=== PATIENT | male | born 1955 | race Caucasian/White ===

== ENCOUNTER 2016-06-18 08:37 | Day surgery (SDC) | payer BC ==
--- NOTE | 2016-06-17 17:28 | PCM.PREANE ---
<Andres Naylor - Last Filed: 06/17/16 17:28> Preanesthetic Assessment - ANESTHESIA/TRANSFUSION/FAMILY HX Anesthesia/Transfusion History: No Prior Transfusion(s), Prior Anesthesia Family History of Anesthesia Reaction: No - REVIEW OF SYSTEMS Constitutional: Reports: no symptoms PHOTOGRAPH INSPECTOR: Reports: no symptoms Respiratory: Reports: no symptoms Cardiovascular: Reports: no symptoms GI: Reports: no symptoms Other: Reports: none - PHYSICAL ASSESSMENT Vital Signs: Last Vital Signs Temp 97.8 F 06/18/16 09:29 Pulse 62 06/18/16 09:29 Resp 18 06/18/16 09:29 BP 119/79 06/18/16 09:29 Pulse Ox 97 06/18/16 09:29 Height: 5 ft 10 in Weight: 261 lb ASA Class: 3 - LAB Values: Laboratory Last Values POC Glucose 154 mg/dL (60-110) H 06/18/16 09:22 - ALLERGIES Allergies/Adverse Reactions: Allergies Allergy/AdvReac Type Severity Reaction Status Date / Time No Known Allergies Allergy Verified 08/21/13 10:02 - ANESTHESIA PLAN Anesthesia Type Planned: MAC - ACKNOWLEDGEMENTS Pt an appropriate candidate for the planned anesthesia: Yes Alternatives and risks of anesthesia discussed w pt/guardian: Yes Pt/Guardian understands and agree with anesthesia plan: Yes PreAnesthesia Questionnaire HEENT History: Reports: Other (see below) Other HEENT History: wears glasses Cardiovascular History: Reports: High cholesterol, Hypertension Respiratory History: Reports: None Gastrointestinal History: Reports: Colon polyp, GERD Genitourinary History: Reports: None Musculoskeletal History: Reports: Back pain, chronic Neurological History: Reports: None Psychiatric History: Reports: None Endocrine/Metabolic History: Reports: Diabetes, type II, Obesity/BMI 30+ Hematologic History: Reports: None Immunologic History: Reports: None Oncologic (Cancer) History: Reports: None Dermatologic History: Reports: None - Past Surgical History Head Surgeries/Procedures: Reports: None GI Surgical History: Reports: Colonoscopy, EGD, Hernia repair/other Other GI Surgeries/Procedures: hx of umbilical hernia approximately 10 yrs ago Musculoskeletal Surgical History: Reports: Other (see below) Other Musculoskeletal Surgeries/Procedures:: hx of hemangioma removed from knee - SUBSTANCE USE Smoking Status *Q: Never Smoker Second Hand Smoke Exposure: No Recreational Drug Use History: No - HOME MEDS Home Medications: Home Meds Losartan Potassium 50 mg PO BEDTIME 01/17/15 [History] SitaGLIPtin [Januvia] 100 mg PO DAILY 01/17/15 [History] atorvaSTATin Calcium [Atorvastatin Calcium] 20 mg PO BEDTIME 01/17/15 [History] glyBURIDE,Micronized [Glyburide Micronized] 6 mg PO BID 01/17/15 [History] metFORMIN [Glucophage] 1,000 mg PO BID 01/17/15 [History] Aspirin [[place] Aspirin] 81 mg PO DAILY 06/15/16 [History] Calcium Carbonate/Vitamin D3 [Calcium 600 + Vit D 400 Softgl] 1 tab PO DAILY [History] Cinnamon Bark [Cinnamon] 500 mg PO DAILY 06/15/16 [History] Cyanocobalamin (Vitamin B-12) [Vitamin B-12] 500 mcg PO DAILY 06/15/16 [History] Fish Oil/[place]-3 Fatty Acids [Fish Oil 1,000 MG] 1,000 mg PO DAILY 06/15/16 [ History] Garlic 500 mg PO DAILY 06/15/16 [History] Magnesium Oxide [Magnesium] 400 mg PO DAILY 06/15/16 [History] Potassium 99 mg PO DAILY 06/15/16 [History] - CURRENT (IN HOUSE) MEDS Current Meds: Current Medications Lactated Ringer's (Ringers, Lactated) 1,000 mls @ 125 mls/hr IV ASDIRECTED [facility] Last Admin: 06/18/16 09:31 Dose: 125 mls/hr Discontinued Medications Lidocaine (Xylocaine-Mpf 2%) Confirm Administered Dose 5 ml .ROUTE .STK-MED ONE Stop: 06/18/16 07:30 Propofol (Diprivan 20 Ml) Confirm Administered Dose 400 mg .ROUTE .STK-MED ONE Stop: 06/18/16 07:30 <Italo Cook - Last Filed: 06/18/16 09:52> Preanesthetic Assessment - ANESTHESIA/TRANSFUSION/FAMILY HX Intubation History: Unknown - REVIEW OF SYSTEMS Constitutional: Reports: no symptoms PHOTOGRAPH INSPECTOR: Reports: no symptoms Respiratory: Reports: no symptoms Cardiovascular: Reports: no symptoms, blood pressure problem (treated) GI: Reports: no symptoms Other: Reports: none, diabetes (on meds for Type II) - PHYSICAL ASSESSMENT ASA Class: 3 Mental Status: alert & oriented x3 Airway Class: Mallampati = 2 Dentition: Reports: normal dentition Thyro-Mental Finger Breadths: 3 Mouth Opening Finger Breadths: 3 (left side TMJ with crunch palpable) ROM/Head Extension: full Respiratory Status: lungs clear to auscultation bilaterally Cardiovascular Status: regular rate & rhythm, no murmur - BLOOD Blood Available: No Product(s) Available: None - ANESTHESIA PLAN Preop Beta Martita: No Anesthesia Type Planned: MAC - ACKNOWLEDGEMENTS Pt an appropriate candidate for the planned anesthesia: Yes Alternatives and risks of anesthesia discussed w pt/guardian: Yes Pt/Guardian understands and agree with anesthesia plan: Yes
[~2016-06-18 08:37] MED LIST: Lactated Ringers 1,000 ML IV SCH; Lidocaine 2% 5 ML SDV ONE; Propofol 200 MG/20 ML SDV ONE
--- NOTE | 2016-06-18 10:36 | PCM.OPNOTE ---
- General Post-Op/Procedure Note Date of Surgery/Procedure: 06/18/16 Operative Procedure(s): Esophagogastroduodenoscopy with biopsy Pre Op Diagnosis: Progressive solid food dysphagia. Heartburn. Post-Op Diagnosis: Chronic gastritis Anesthesia Technique: MAC (ASA III) Primary Surgeon: Mustapha Sharma Hat Band Attacher: Becky June Condition: Good Free Text/Narrative:: Dictation [id number]
[2016-06-18] MEDS ORDERED: Lactated Ringers 1,000 ML IV SCH (10:45)
--- NOTE | 2016-06-18 11:30 | OR ---
SURGEON: Mustapha Sharma M.D. DATE OF PROCEDURE: 06/18/2016 OPERATION PERFORMED: Esophagogastroduodenoscopy with biopsy. MACHINE LEAD BURNER: Dr. June. ANESTHESIA: MAC. ASA CLASSIFICATION: III. PREOPERATIVE DIAGNOSIS: Progressive solid food dysphagia with persistent heartburn. POSTOPERATIVE DIAGNOSES: Mild to moderate gastritis, no ulcerations, no esophageal lesions, no esophageal stricture. DESCRIPTION OF PROCEDURE: The patient was taken to the endoscopy room and positioned on the endoscopy table in the supine position. Time-out was called for appropriate identification of the patient and procedure. Bite-block was placed between the patient's teeth. The gastroscope was inserted into the mouth and advanced without difficulty through the esophagus and stomach into the duodenum, where examination was carried out in a retrograde fashion. Duodenum shows no acute inflammatory changes. The scope was withdrawn into the stomach, which does show mild to moderate gastritis. No acute ulcerations were identified. Antral biopsies were obtained to rule out Helicobacter pylori. The gastroscope was retroflexed to visualize the proximal stomach. Again, gastritis was noted, but no ulcerations or tumors. The gastroscope was straightened and slowly withdrawn aspirating the stomach. The GE junction was well defined and shows no acute inflammatory changes or ulcerations. There was no stricture noted anywhere along the entire length of the esophagus. The esophagus demonstrated good contractility. No vocal cord lesions were identified as the scope was withdrawn. The patient tolerated the procedure well and was taken to recovery room in stable condition. SHARON / HIWOT /[id number]
--- NOTE | 2016-06-18 11:43 | PCM.POSTAN ---
POST ANESTHESIA ASSESSMENT - MENTAL STATUS Mental Status: alert, oriented - RESPIRATORY Respiratory Status: respiratory rate WNL, airway patent, O2 saturation stable - CARDIOVASCULAR CV Status: pulse rate WNL, blood pressure stable - GASTROINTESTINAL GI Status: no symptoms - POST OP HYDRATION Hydration Status: adequate & stable
--- NOTE | 2016-06-18 11:44 | PCM48HPAN ---
Post Anesthesia Note - EVALUATION WITHIN 48HRS OF ANESTHETIC Vital Signs in Normal Range: Yes Patient Participated in Evaluation: Yes Respiratory Function Stable: Yes Airway Patent: Yes Cardiovascular Function Stable: Yes Hydration Status Stable: Yes Pain Control Satisfactory: Yes Nausea and Vomiting Control Satisfactory: Yes Mental Status Recovered: Yes
[2016-06-18 11:46] VITALS: BP 124/73
== END 2016-06-18 11:50 | disposition home or self-care (01) ==
LOC: MW.SDS 08:37
PROVIDERS: ATTEND Surgery
PROC: 0DB68ZX Excision of Stomach, Via Natural or Artificial Opening Endoscopic, Diagnostic (ICD-10-PCS; principal; 2016-06-18)
DX: K29.50 Unspecified chronic gastritis without bleeding (principal); I10 Essential (primary) hypertension; E11.9 Type 2 diabetes mellitus without complications; E78.00 Pure hypercholesterolemia, unspecified; Z86.010 Personal history of colon polyps; Z91.048 Other nonmedicinal substance allergy status; Z79.82 Long term (current) use of aspirin; Z79.84 Long term (current) use of oral hypoglycemic drugs; Z79.899 Other long term (current) drug therapy; Z98.890 Other specified postprocedural states; E66.9 Obesity, unspecified; Z68.36 Body mass index [BMI] 36.0-36.9, adult
CPT/HCPCS: 43239; 82962; 88305; 88312; J7120; 00740; J2704

== ENCOUNTER 2020-05-16 06:32 | Day surgery (SDC) | payer BC ==
[~2020-05-16 06:32] MED LIST changes: -Lidocaine 2% 5 ML SDV ONE; -Propofol 200 MG/20 ML SDV ONE
[2020-05-16] MEDS ORDERED: Propofol 200 MG/20 ML SDV ONE ×2 (06:45→07:53)
[2020-05-16] MEDS ORDERED: fentaNYL 100 MCG/2 ML SDV ONE (07:02)
--- NOTE | 2020-05-16 07:28 | PCM.PREANE ---
Preanesthetic Assessment - Anesthesia/Transfusion/Family Hx Anesthesia History: Prior Anesthesia Without Reaction Family History of Anesthesia Reaction: No Transfusion History: No Prior Transfusion(s) - Review of Systems General: No Symptoms Pulmonary: No Symptoms Cardiovascular: No Symptoms Gastrointestinal: No Symptoms Neurological: No Symptoms Other: Reports: None - Physical Assessment NPO Status Date: 05/15/20 Vital Signs: Last Vital Signs Temp 97.5 F 05/16/20 06:49 Pulse 70 05/16/20 06:49 Resp 16 05/16/20 06:49 BP 147/81 H 05/16/20 06:49 Pulse Ox 96 05/16/20 06:49 Height: 5 ft 10 in Weight: 108.862 kg ASA Class: 2 Mental Status: Alert & Oriented x3 Airway Class: Mallampati = 2 Dentition: Reports: Normal Dentition ROM/Head Extension: Full Lungs: Clear to Auscultation, Normal Respiratory Effort Cardiovascular: Regular Rate, Regular Rhythm - Lab Values: Laboratory Last Values POC Glucose 94 mg/dL (60-110) 05/16/20 06:48 - Allergies Allergies/Adverse Reactions: Allergies Allergy/AdvReac Type Severity Reaction Status Date / Time lisinopril Allergy Cough Verified 05/16/20 07:00 - Blood Blood Available: No - Anesthesia Plan Pre-Op Medication Ordered: None - Acknowledgements Anesthesia Type Planned: General Anesthesia (tiva) Pt an Appropriate Candidate for the Planned Anesthesia: Yes Alternatives and Risks of Anesthesia Discussed w Pt/Guardian: Yes Pt/Guardian Understands and Agrees with Anesthesia Plan: Yes PreAnesthesia Questionnaire HEENT History: Reports: Other (See Below) Other HEENT History: wears glasses Cardiovascular History: Reports: High Cholesterol, Hypertension Respiratory History: Reports: None Gastrointestinal History: Reports: Colon Polyp, GERD Genitourinary History: Reports: None Musculoskeletal History: Reports: Back Pain, Chronic, Fracture Other Musculoskeletal History: hx fx collarbone Neurological History: Reports: None Psychiatric History: Reports: None Endocrine/Metabolic History: Reports: Diabetes, Type II, Obesity/BMI 30+ Hematologic History: Reports: None Immunologic History: Reports: None Oncologic (Cancer) History: Reports: None Dermatologic History: Reports: Other (See Below) Other Dermatologic History: hx MRSA in hand approx 8 years ago - Past Surgical History Head Surgeries/Procedures: Reports: None HEENT Surgical History: Reports: Tonsillectomy Cardiovascular Surgical History: Reports: None Respiratory Surgical History: Reports: None GI Surgical History: Reports: Colonoscopy, EGD, Hernia, Abdominal, Hernia Repair /Other Other GI Surgeries/Procedures: hx of umbilical hernia Male Surgical History: Reports: None Endocrine Surgical History: Reports: None Neurological Surgical History: Reports: None Musculoskeletal Surgical History: Reports: Other (See Below) Other Musculoskeletal Surgeries/Procedures:: hx of hemangioma removed from knee Oncologic Surgical History: Reports: None Dermatological Surgical History: Reports: None - SUBSTANCE USE Tobacco Use Status *Q: Never Tobacco User - HOME MEDS Home Medications: Home Meds Losartan Potassium 50 mg PO BEDTIME 01/17/15 [History] atorvaSTATin Calcium [Atorvastatin Calcium] 10 mg PO BEDTIME 01/17/15 [History] metFORMIN [Glucophage] 1,000 mg PO BID 01/17/15 [History] Aspirin [[place] Aspirin EC] 81 mg PO DAILY 06/15/16 [History] Calcium Carbonate/Vitamin D3 [Calcium 600 + Vit D 400 Softgl] 1 tab PO DAILY 06/15/16 [History] Cinnamon Bark [Cinnamon] 500 mg PO DAILY 06/15/16 [History] Cyanocobalamin (Vitamin B-12) [Vitamin B-12] 500 mcg PO DAILY 06/15/16 [History] Fish Oil/[place]-3 Fatty Acids [Fish Oil 1,000 MG] 1,000 mg PO DAILY 06/15/16 [History] Garlic 500 mg PO DAILY 06/15/16 [History] Magnesium Oxide [Magnesium] 400 mg PO DAILY 06/15/16 [History] Dulaglutide [Trulicity] 1.5 mg SUBCUT WEEKLY 05/12/20 [History] Empagliflozin [Jardiance] 25 mg PO DAILY 05/12/20 [History] Pioglitazone HCl 30 mg PO DAILY 05/12/20 [History] - CURRENT (IN HOUSE) MEDS Current Meds: Current Medications Lactated Ringer's (Ringers, Lactated) 1,000 mls @ 125 mls/hr IV ASDIRECTED [facility] Last Admin: 05/16/20 06:53 Dose: 125 mls/hr Documented by: Discontinued Medications Fentanyl (Sublimaze) Confirm Administered Dose 100 mcg .ROUTE .STK-MED ONE Stop: 05/16/20 07:03 Lidocaine HCl (Xylocaine-Mpf 1%) Confirm Administered Dose 5 ml .ROUTE .STK-MED ONE Stop: 05/16/20 06:47 Propofol (Diprivan 20 Ml) Confirm Administered Dose 200 mg .ROUTE .STK-MED ONE Stop: 05/16/20 06:46
--- NOTE | 2020-05-16 08:25 | PCM.OPNOTE ---
- General Post-Op/Procedure Note Date of Surgery/Procedure: 05/16/20 Operative Procedure(s): Colonoscopy with cold rectal polypectomy Pre Op Diagnosis: Personal history of colon polyps. Change in bowel habits. Post-Op Diagnosis: Rectal polyp. Sigmoid diverticulosis. Anesthesia Technique: MAC (ASA II) Primary Surgeon: Mustapha Sharma Condition: Good Free Text/Narrative:: DICTATION [id number] CPT CODE 95398
[2020-05-16] MEDS ORDERED: Lactated Ringers 1,000 ML IV SCH (08:30)
--- NOTE | 2020-05-16 08:39 | PCM48HPAN ---
Post Anesthesia Note - EVALUATION WITHIN 48HRS OF ANESTHETIC Vital Signs in Normal Range: Yes Patient Participated in Evaluation: Yes Respiratory Function Stable: Yes Airway Patent: Yes Cardiovascular Function Stable: Yes Hydration Status Stable: Yes Pain Control Satisfactory: Yes Nausea and Vomiting Control Satisfactory: Yes Mental Status Recovered: Yes Vital Signs: Last Vital Signs Temp 97.5 F 05/16/20 06:49 Pulse 71 05/16/20 08:32 Resp 15 05/16/20 08:32 BP 115/68 05/16/20 08:32 Pulse Ox 95 05/16/20 08:32
--- NOTE | 2020-05-16 08:39 | PCM.POSTAN ---
POST ANESTHESIA ASSESSMENT - MENTAL STATUS Mental Status: Alert, Oriented - VITAL SIGNS Vital Signs: Last Vital Signs Temp 97.5 F 05/16/20 06:49 Pulse 71 05/16/20 08:32 Resp 15 05/16/20 08:32 BP 115/68 05/16/20 08:32 Pulse Ox 95 05/16/20 08:32 - RESPIRATORY Respiratory Status: Respiratory Rate WNL, Airway Patent, O2 Saturation Stable - CARDIOVASCULAR CV Status: Pulse Rate WNL - GASTROINTESTINAL GI Status: No Symptoms - POST OP HYDRATION Hydration Status: Adequate & Stable
[2020-05-16 08:55] VITALS: BP 126/71; PULSE 66
--- NOTE | 2020-05-16 10:59 | OR ---
SURGEON: Mustapha Sharma M.D. DATE OF PROCEDURE: 05/16/2020 OPERATION PERFORMED: Colonoscopy with cold rectal polypectomy. PRIMARY SURGEON: Mustapha Sharma MD ANESTHESIA: MAC. ASA CLASSIFICATION: II. PREOPERATIVE DIAGNOSES: 1. Change in bowel habits. 2. Personal history of colon polyps. POSTOPERATIVE DIAGNOSES: 1. Rectal polyp. 2. Mild sigmoid diverticulosis. DESCRIPTION OF PROCEDURE: The patient was taken to the endoscopy room and positioned on the endoscopy table in the left lateral decubitus position. Time-out was called for appropriate identification of the patient and procedure. Monitored anesthesia care was provided. The colonoscope was inserted into the rectum and advanced with minimal difficulty to the cecum. The cecum was identified by internal landmarks and external pressure. The colonoscope was retroflexed to visualize the ascending colon from below, then straightened, and slowly withdrawn. The cecum, ascending colon, hepatic flexure, transverse colon, splenic flexure, and descending colon showed no tumors, polyps, diverticula, or angiodysplastic changes. A few small scattered diverticula were noted in the sigmoid colon. No stricture, spasm, or bleeding was noted. No polyps were encountered. The colonoscope was withdrawn to the rectum where small a polyp was identified, removed with cold biopsy forceps. The colonoscope was then retroflexed to visualize the anal orifice from above. No other tumors or polyps were seen and there were no acute hemorrhoidal changes. The colonoscope was then straightened, the rectum aspirated, and the colonoscope removed. The patient tolerated the procedure well and was taken to recovery room in stable condition. SHARON / HIWOT /[id number]
== END 2020-05-16 09:11 | disposition home or self-care (01) ==
LOC: MW.SDS 06:32
PROVIDERS: ATTEND Surgery
DX: D12.8 Benign neoplasm of rectum (principal); K57.30 Diverticulosis of large intestine without perforation or abscess without bleeding; E11.42 Type 2 diabetes mellitus with diabetic polyneuropathy; K21.9 Gastro-esophageal reflux disease without esophagitis; E66.9 Obesity, unspecified; E78.00 Pure hypercholesterolemia, unspecified; I10 Essential (primary) hypertension; Z79.82 Long term (current) use of aspirin; Z79.899 Other long term (current) drug therapy; Z98.890 Other specified postprocedural states; Z88.8 Allergy status to other drugs, medicaments and biological substances; Z79.84 Long term (current) use of oral hypoglycemic drugs
CPT/HCPCS: 45380; 82962; 88305; J2704; J3010; J7120; 00812; J2001